=== PATIENT | male | born 1995 | race Caucasian/White ===

== ENCOUNTER 2016-11-04 23:59 | Emergency (ER) | payer BC ==
[2016-11-05 00:10] VITALS: BP 123/74
[2016-11-05] MEDS ORDERED: Bacitracin/Neomycin/Polymyxin B Oint 0.9 GM U/D Packet TOP ONE (00:46)
[2016-11-05] MEDS ORDERED: Bacitracin/Neomycin/Polymyxin B Oint 0.9 GM U/D Packet ONE (00:46)
--- NOTE | 2016-11-05 01:01 | EDM.PDOC ---
ED HPI GENERAL MEDICAL PROBLEM - General Chief Complaint: Laceration Stated Complaint: finger laceration Time Seen by Provider: 11/05/16 00:19 Source of Information: Reports: Patient History Limitations: Reports: No Limitations - History of Present Illness INITIAL COMMENTS - FREE TEXT/NARRATIVE: Laceration to left middle finger over MIP joint due to cutting zip ties. No loss of function. No numbness. Bleeding controlled by time of arrival. Last tetanus was in 2008. No other complaints. 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 [No Known Home Meds] 01/26/16 [History] Past Medical History - Past Health History Medical/Surgical History: Denies Medical/Surgical History Social & Family History - Tobacco Use Smoking Status *Q: Unknown Ever Smoked Years of Tobacco use: 6 Packs/Tins Daily: 0.5 - Caffeine Use Caffeine Use: Reports: Coffee, Energy Drinks, Soda, Tea - Alcohol Use Date of Last Drink: 11/04/16 Time of Last Drink: 23:45 - Recreational Drug Use Recreational Drug Use: No ED ROS GENERAL - Review of Systems Review Of Systems: ROS reveals no pertinent complaints other than HPI. ED EXAM, SKIN/RASH Exam: See Below Exam Limited By: No Limitations General Appearance: Alert, WD/WN, No Apparent Distress Eye Exam: Bilateral Eye: EOMI, PERRL Head: Atraumatic, Normocephalic Neck: Supple Respiratory/Chest: No Respiratory Distress Extremities: Other (1.8 cm laceration noted horizontally over middle IP joint of left 3rd finger. Full thickness. Tendon function intact. Finger NVI. No other signs of trauma except for very superficial laceration to 4th digit. ) Neurological: Alert, Oriented, Normal Cognition, Normal Gait, No Motor/Sensory Deficits Psychiatric: Normal Affect, Normal Mood ED SKIN PROCEDURES - Laceration/Wound Repair Left Middle Dorsal Finger Lac/Wound length In cm: 1.8 Appearance: Subcutaneous, Linear, Clean Distal NVT: Neuro & Vascular Intact, No Tendon Injury Anesthetic Type: Local Local Anesthesia - Lidocaine (Xylocaine): 1% Plain Local Anesthetic Volume: 2cc Skin Prep: Providone-Iodine (Betadine) Exploration/Debridement/Repair: Wound Explored, In a Bloodless Field, Explored to Base Closed with: Sutures Suture Size: 4-0 # of Sutures: 3 Suture Type: Nylon, Interrupted Sterile Dressing Applied: Nurse Tetanus Status Addressed: Yes Complications: No Course - Vital Signs Last Recorded V/S: Last Vital Signs Temp 36.7 C 11/05/16 00:03 Pulse 60 11/05/16 00:03 Resp 16 11/05/16 00:03 BP 123/74 11/05/16 00:03 Pulse Ox 100 11/05/16 00:03 - Orders/Labs/Meds Meds: Medications Discontinued Medications Generic Name Dose Route Start Last Admin Trade Name Alec PRN Reason Stop Dose Admin Lidocaine HCl Confirm 11/05/16 00:46 Xylocaine-Mpf 1% Administered 11/05/16 00:47 Dose 5 ml .ROUTE .STK-MED ONE Neomycin/Polymyxin/Bacitracin Confirm 11/05/16 00:46 Triple Antibiotic Oint Administered 11/05/16 00:47 Dose 1 each .ROUTE .STK-MED ONE - Re-Assessments/Exams Free Text/Narrative Re-Assessment/Exam: 11/05/16 01:01 Laceration repaired. Wound care discussed. Sutures to be removed in 7-10 days. Departure - Departure Time of Disposition: 01:02 Disposition: Home, Self-Care 01 Condition: Good Clinical Impression: Laceration of finger Qualifiers: Encounter type: initial encounter Finger: middle finger Damage to nail status: without damage Foreign body presence: without foreign body Laterality: left Qualified Code(s): S61.213A - Laceration without foreign body of left middle finger without damage to nail, initial encounter - Discharge Information Instructions: Laceration Care, Adult, [id number] Referrals: Jamarcus Solis PA [Primary Care Provider] - Additional Instructions: Have sutures removed next Monday. Wound care as discussed. Follow up for recheck if you have problems, such as signs of infection.
== END 2016-11-05 01:15 | disposition home or self-care (01) ==
LOC: LL.ED 23:59
DX: S61.213A Laceration without foreign body of left middle finger without damage to nail, initial encounter (principal); Z88.0 Allergy status to penicillin; Z87.891 Personal history of nicotine dependence; W26.8XXA Contact with other sharp object(s), not elsewhere classified, initial encounter
CPT/HCPCS: 12001; 99283

== ENCOUNTER 2017-02-09 18:14 | Emergency (ER) | payer BC, OTHER ==
[2017-02-09 18:19] VITALS: BP 141/83
[2017-02-09] MEDS ORDERED: Tetracaine HCl/PF 0.5% 4 ML Bottle EYELF ONE (18:22)
[2017-02-09] MEDS ORDERED: Balanced Salt Solution Ophth Irrig 30 ML Bottle ONE (19:28)
[2017-02-09] MEDS ORDERED: Balanced Salt Solution Ophth Irrig 30 ML Bottle EYELF ONE (19:28)
[2017-02-09] MEDS ORDERED: Erythromycin Base 0.5% Ophth Oint 3.5 GM Tube EYELF ONE (19:30)
--- NOTE | 2017-02-09 19:35 | EDM.PDOC ---
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 He thinks that some hot welding dust may have gotten into eye despite safety glasses. Thinks that he managed to wipe some small amount of dust particles out of the eye on his own. Did not irrigate eye. Motley like FB in eye. Denies any vision changes. Did not bring his regular prescription glasses along to ER. Unable to measure eyesight using chart. Patient subjectively insists no change in vision. No problems with right eye. No other complaints or injuries. Works at [employer]. Left Eye Pain Score (Numeric/FACES): 3 - Related Data Allergies Allergy/AdvReac Type Severity Reaction Status Date / Time Penicillins Allergy Cannot Verified 02/09/17 18:15 Remember Home Meds: Home Meds . [No Known Home Meds] 01/26/16 [History] Past Medical History - Past Health History Medical/Surgical History: Denies Medical/Surgical History Social & Family History - Tobacco Use Smoking Status *Q: Unknown Ever Smoked Years of Tobacco use: 6 Packs/Tins Daily: 0.5 - Caffeine Use Caffeine Use: Reports: Coffee, Energy Drinks, Soda, Tea - Recreational Drug Use Recreational Drug Use: No ED ROS GENERAL - Review of Systems Review Of Systems: ROS reveals no pertinent complaints other than HPI. ED EXAM GENERAL W FULL EYE - Physical Exam Exam: See Below Exam Limited By: No Limitations General Appearance: Alert, WD/WN, No Apparent Distress Eye Exam: Left Eye: Conjunctival Injection, Bilateral Eye: EOMI, PERRL Eyelids: Bilateral: Normal Appearance Conjunctiva & Sclera: Left: Injected Cornea Exam: Bilateral: Normal Appearance Extraocular Movements: Bilateral: Intact Pupils: Normal Accommodation Pupillary Size: Bilateral: 6 mm Pupillary Reaction: Bilateral: Brisk Anterior Chamber: Bilateral: Normal Appearance Ears: Normal External Exam Nose: Normal Inspection Throat/Mouth: Normal Inspection, Normal Voice, No Airway Compromise Head: Atraumatic, Normocephalic Neck: Normal Inspection, Supple Respiratory/Chest: No Respiratory Distress Neurological: Alert, Oriented, Normal Cognition, Normal Gait Skin Exam: Warm, Dry, Intact, Normal Color Comments: No noted abrasions or FB noted using fluorescein strip. ED EYE w/ Add Procedure - Eye Procedure Alcaine Drops Administered: Yes Eye Irrigated w/ Saline (ccs): 60 Antibiotic Oinment/Drps Admin: Left Eye Course - Vital Signs Last Recorded V/S: Last Vital Signs Temp 36.4 C 02/09/17 18:18 Pulse 86 02/09/17 18:18 Resp 16 02/09/17 18:18 BP 141/83 H 02/09/17 18:18 Pulse Ox 100 02/09/17 18:18 - Orders/Labs/Meds Meds: Medications Discontinued Medications Generic Name Dose Route Start Last Admin Trade Name Alec PRN Reason Stop Dose Admin Balanced Salt Solution Confirm 02/09/17 19:28 Eye Stream Eye Rinse Administered 02/09/17 19:29 Dose 60 ml .ROUTE .STK-MED ONE Erythromycin 1 gm 02/09/17 19:30 Erythromycin 0.5% Ophth Oint EYELF 02/09/17 19:31 ONETIME ONE Tetracaine HCl 0.25 ml 02/09/17 18:22 02/09/17 18:28 Tetracaine 0.5% Steri-Unit Rosalva EYELF 02/09/17 18:23 1 drop ASDIRECTED ONE Administration - Re-Assessments/Exams Free Text/Narrative Re-Assessment/Exam: 02/09/17 19:50 No noted FB noted, no abrasions noted. Erythema of eye improved while he was in ER. Saline flush performed. E-mycin ointment administered. Numerous precautions reviewed prior to discharge. He is to follow up for recheck if symptoms do not improve over the next 12 hours or if he has sudden worsening problems. Departure - Departure Time of Disposition: 19:50 Disposition: Home, Self-Care 01 Clinical Impression: Contact with welding equipment as cause of accidental injury FB eye Qualifiers: Encounter type: initial encounter Laterality: left Qualified Code(s): T15.92XA - Foreign body on external eye, part unspecified, left eye, initial encounter - Discharge Information Instructions: Eye Foreign Body, [id number] Referrals: Jamarcus Solis PA [Primary Care Provider] - Forms: ED Department Discharge Additional Instructions: Go home and rest tonight. Continue to apply the eye ointment every 4-6 hours while you are awake over the next 3 days. If you continue to experience similar discomfort tomorrow, especially if discomfort has worsened, or vision has changed, or you notice drainage for the eye, get rechecked. You may follow up with your local eye provider as we discussed. You may follow up at the ER if needed. Otherwise sensation of discomfort should steadily improve over the next few days.
== END 2017-02-09 20:05 | disposition home or self-care (01) ==
LOC: LL.ED 18:14
DX: T15.92XA Foreign body on external eye, part unspecified, left eye, initial encounter (principal); Z88.0 Allergy status to penicillin; X58.XXXA Exposure to other specified factors, initial encounter; Y93.89 Activity, other specified; Y99.0 Civilian activity done for income or pay
CPT/HCPCS: 99283; A9270; 65205

== ENCOUNTER 2018-11-17 12:40 | Emergency (ER) | payer BC, OTHER ==
[2018-11-17 12:48] VITALS: BP 134/93; PULSE 84
[2018-11-17] MEDS ORDERED: Ondansetron 4 MG Tab.DIS PO ONE (13:42)
[2018-11-17] MEDS ORDERED: Morphine 2 MG/ML Syringe SUBCUT ONE (13:43)
[2018-11-17] MEDS ORDERED: Cephalexin 250 MG Cap PO ONE (14:07)
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
== END 2018-11-17 15:30 | disposition home or self-care (01) ==
LOC: LL.ED 12:40
DX: S62.025A Nondisplaced fracture of middle third of navicular [scaphoid] bone of left wrist, initial encounter for closed fracture (principal); S50.311A Abrasion of right elbow, initial encounter; S50.312A Abrasion of left elbow, initial encounter; S60.512A Abrasion of left hand, initial encounter; S60.511A Abrasion of right hand, initial encounter; S80.211A Abrasion, right knee, initial encounter; S30.811A Abrasion of abdominal wall, initial encounter; F41.9 Anxiety disorder, unspecified; Z88.0 Allergy status to penicillin; Z79.899 Other long term (current) drug therapy; V86.56XA Driver of dirt bike or motor/cross bike injured in nontraffic accident, initial encounter
CPT/HCPCS: 73110-LT; 96372; 99283; A9270-GY; J2270

== ENCOUNTER 2024-09-06 18:14 | Emergency (ER) | payer BC ==
[2024-09-06 18:19] VITALS: BP 136/88; PULSE 100
[2024-09-06] MEDS: Bacitracin Oint 1 GM U/D Packet TOP ONE (19:02)
[2024-09-06] MEDS: Bacitracin Oint 1 GM U/D Packet ONE (19:02)
== END 2024-09-06 19:00 ==
LOC: LL.ED 18:14
DX: Z02.89 Encounter for other administrative examinations (principal); F10.129 Alcohol abuse with intoxication, unspecified; Z88.0 Allergy status to penicillin
CPT/HCPCS: 99283; 99284